=== PATIENT | female | born 2000 | race Caucasian/White ===

== ENCOUNTER → 2021-02-16 | Outpatient (CLI) | payer SELFPAY ==
--- NOTE | 2021-02-17 15:27 | REP ---
INDICATION: THYROTOXICOSIS W/ GOITER. COMPARISON: None. TECHNIQUE/RADIOTRACER AND DOSE: Following the oral administration of 363 uCi iodine 123 as sodium iodine, 24 hour uptake is measured and thyroid scan is performed. FINDINGS: The 24 hour uptake is 39.23%. Normal range of 25-35%. Thyroid scan shows relatively normal size of symmetrical thyroid lobes. There is homogeneous radiotracer uptake diffusely bilaterally. No focal hot or cold nodule is seen. IMPRESSION: Mildly increased 24 hour uptake of 39.23%. No focal hot or cold nodule. <Electronically signed by Pancho Matt > 02/17/21 1528
== END ==
LOC: M RAD 13:35
PROVIDERS: ATTEND Nurse Practitioner Family
DX: E05.00 Thyrotoxicosis with diffuse goiter without thyrotoxic crisis or storm (principal)
CPT/HCPCS: 78012; A9516

== ENCOUNTER → 2021-03-24 | Outpatient (CLI) | payer SELFPAY | LOC: M RAD 10:10 | PROVIDERS: ATTEND Internal Medicine Endocrinology, Diabetes & Metabolism | DX: E05.00 Thyrotoxicosis with diffuse goiter without thyrotoxic crisis or storm (principal) | CPT/HCPCS: 79005; A9517 ==